=== PATIENT | female | born 1970 | race Caucasian/White ===

== ENCOUNTER 2023-09-27 13:56 | Emergency (ER) | payer BC, SELFPAY ==
[2023-09-27 14:00] VITALS: BP 201/121
[2023-09-27 16:28] VITALS: BP 165/92
[2023-09-27 16:32] VITALS: BMI 60.2
[2023-09-27] MEDS: NSS 1000 IV (16:33)
[2023-09-27 16:42] LABS: % Basophils 0.2 % (0-2); % Eosinophils 1.3 % (0-6); % Immature Granulocytes 0.6 % (0-0.5); % Lymphocytes 14.5 % (20.5-51.1); % Neutrophils 77.4 % (42.2-75.2); Absolute Eosinophils 0.1 10^3/uL (0-0.7); Absolute Immature Granulocytes 0.1 10^3/uL (0-0.05); Absolute Lymphocytes 1.3 10^3/uL (1.2-3.4); Absolute Monocytes 0.5 10^3/uL (0.1-0.6); Absolute Neutrophils 6.8 10^3/uL (1.4-6.5); Hematocrit 34.2 % (37.0-47.0); Hemoglobin 11.7 g/dL (12.0-16.0); Mean Corp Hgb Conc. 34.2 g/dL (33.0-37.0); Mean Corpuscular Hgb 30.9 pg (27.0-31.0); Mean Corpuscular Volume 90.2 fL (81.0-99.0); Mean Platelet Volume 9.5 fL (7.4-10.4); Nucleated Red Blood Cells % 0 %; Platelet Count 276 10^3/uL (130-400); Red Blood Cell Count 3.79 10^6/uL (4.20-5.40); White Blood Cell Count 8.7 10^3/uL (4.8-10.8)
--- NOTE | 2023-09-27 16:48 | ED.GENMED ---
History of Present Illness
<Esther Millan PRIMARY MONTESSORI TEACHER - Last Filed: 09/28/23 16:06>
General
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
Source: patient
Exam Limitations: none
Time Seen by Provider: 09/27/23 16:02
Nursing documentation reviewed up to this point in time: agreed with
History of Present Illness
History of Present Illness:
52-year-old female here for 7 days of heavy vaginal bleeding with clots some of them as large as her fist today, perimenopausal, has had episodic heavy vaginal bleeding with clots since 2021, followed by [facility], was given TXA in
2022 for her bleeding and she had some leftover. She has been taking leftover TXA 3 x a day for past 5 days with no improvement. She feels lightheaded, denies CP or SOB. There is no pain/cramping with the bleeding. No fever/chills. No n/v/d/c
Past History
<Esther Millan, PRIMARY MONTESSORI TEACHER - Last Filed: 09/28/23 16:06>
Past History
ED Past Medical History: Other (anemia, last Iron infusion one month ago)
ED Past Surgical History: Cholecystectomy and Other (gastric bypass)
Social History
Tobacco: Non-smoker
Personal:
Living: with family
Employment: Employed
Review of Systems
<Esther Millan PRIMARY MONTESSORI TEACHER - Last Filed: 09/28/23 16:06>
Review of Systems
Allergies reviewed?: Yes
All Other Systems: ROS reviewed and negative except as documented in HPI and ROS
Constitutional: Reports fatigue (lightheaded); Denies fever
Respiratory: Denies trouble breathing
Cardiac: Denies chest pain
ABD/GI: Denies abdominal pain, nausea, vomiting or diarrhea
: Reports bleeding (heavy vaginal bleeding with clots); Denies dysuria, frequency or difficulty voiding
Musculoskeletal: Reports no symptoms
Skin: Reports no symptoms
Neurological: Reports no symptoms
Phy Exam
<Esther Millan, PRIMARY MONTESSORI TEACHER - Last Filed: 09/28/23 16:06>
Physical Exam
Physical Exam:
GENERAL: No acute distress. A&Ox3.
CONSTITUTIONAL: Afebrile.
EYES:clear, conjunctivae normal
ENMT: moist mucus membranes, Pharynx nl
RESPIRATORY: Regular respirations, nonlabored, lungs clear.
CARDIOVASCULAR: Regular rate and rhythm, no murmurs, no rubs.
GI: Soft, nontender, normal BS
:
MUSCULOSKELETAL: Moves with ease. Well perfused.
SKIN: Warm, dry, pink
PSYCH: Normal mood and affect. Well kept, interactive and appropriate
NEUROLOGIC: Awake, alert and oriented. No focal neurological deficits
Course
<Esther Millan, PRIMARY MONTESSORI TEACHER - Last Filed: 09/28/23 16:06>
Orders/Labs/Results
Orders:
Orders
09/27/23 16:25
0.9% Sodium Chloride 1000 ml [Nss] 1,000 ml IV BOLUS
US Pelvis W Transvag Combined Urgent
Comment:
Reason For Exam: heavy bleeding w clots
09/27/23 16:30
Type+Screen Urgent
Complete Blood Count/With Diff Urgent
Comprehensive Metabolic Panel Urgent
HCG, Serum Qualitative Screen Urgent
Comment: ADD ON
09/27/23 17:15
Add On- LAB Urgent
Tests Added?: beta qual
09/27/23 20:08
Medroxyprogesterone [Provera] 5 mg PO NOW STA
Abnormal Lab Results
09/27/23
16:30
RBC 3.79 L 10^6/uL
(4.20-5.40)
Hgb 11.7 L g/dL
(12.0-16.0)
Hct 34.2 L %
(37.0-47.0)
Abs Immat Gran (auto) 0.1 H 10^3/uL
(0-0.05)
Absolute Neuts (auto) 6.8 H 10^3/uL
(1.4-6.5)
Immature Gran % 0.6 H %
(0-0.5)
Neutrophils % 77.4 H %
(42.2-75.2)
Lymphocytes % 14.5 L %
(20.5-51.1)
Creatinine 0.5 L mg/dL
(0.6-1.0)
Glucose 102 H mg/dl
(70-99)
09/27/23 16:30
09/27/23 16:30
Vital Signs
Initial and Last Documented VS:
Initial Vital Signs
Temp Pulse Resp BP Pulse Ox
98.6 F 74 16 201/121 97
09/27/23 14:00 09/27/23 14:00 09/27/23 14:00 09/27/23 14:00 09/27/23 14:00
Last Documented Vital Signs
Temp Pulse Resp BP Pulse Ox
98.6 F 69 16 140/72 66
09/27/23 14:00 09/27/23 16:28 09/27/23 14:00 09/27/23 20:27 09/27/23 20:27
<ELIZABETH Mendoza - Last Filed: 09/27/23 20:08>
Orders/Labs/Results
Orders:
Orders
09/27/23 16:25
0.9% Sodium Chloride 1000 ml [Nss] 1,000 ml IV BOLUS
US Pelvis W Transvag Combined Urgent
Comment:
Reason For Exam: heavy bleeding w clots
09/27/23 16:30
Type+Screen Urgent
Complete Blood Count/With Diff Urgent
Comprehensive Metabolic Panel Urgent
HCG, Serum Qualitative Screen Urgent
Comment: ADD ON
09/27/23 17:15
Add On- LAB Urgent
Tests Added?: beta qual
09/27/23 20:08
Medroxyprogesterone [Provera] 5 mg PO NOW STA
Abnormal Lab Results
09/27/23
16:30
RBC 3.79 L 10^6/uL
(4.20-5.40)
Hgb 11.7 L g/dL
(12.0-16.0)
Hct 34.2 L %
(37.0-47.0)
Abs Immat Gran (auto) 0.1 H 10^3/uL
(0-0.05)
Absolute Neuts (auto) 6.8 H 10^3/uL
(1.4-6.5)
Immature Gran % 0.6 H %
(0-0.5)
Neutrophils % 77.4 H %
(42.2-75.2)
Lymphocytes % 14.5 L %
(20.5-51.1)
Creatinine 0.5 L mg/dL
(0.6-1.0)
Glucose 102 H mg/dl
(70-99)
09/27/23 16:30
09/27/23 16:30
Vital Signs
Initial and Last Documented VS:
Initial Vital Signs
Temp Pulse Resp BP Pulse Ox
98.6 F 74 16 201/121 97
09/27/23 14:00 09/27/23 14:00 09/27/23 14:00 09/27/23 14:00 09/27/23 14:00
Last Documented Vital Signs
Temp Pulse Resp BP Pulse Ox
98.6 F 69 16 140/72 66
09/27/23 14:00 09/27/23 16:28 09/27/23 14:00 09/27/23 20:27 09/27/23 20:27
<Esther Millan NP - Last Filed: 09/28/23 16:06>
MDM/Problems Addressed
Differential Diagnosis Includes:
DUB
MDM/Problems Addressed:
52-year-old female here for 7 days of heavy vaginal bleeding with clots some of them as large as her fist today, perimenopausal, has had episodic heavy vaginal bleeding with clots since 2021, followed by [facility], was given TXA in
2022 for her bleeding and she had some leftover. She has been taking leftover TXA 3 x a day for past 5 days with no improvement. She feels lightheaded, denies CP or SOB. There is no pain/cramping with the bleeding. No fever/chills. No n/v/d/c
VSS, NAD, Afebrile
5:00 PM:
HGb 11.7
CMP normal
HCG neg
Ultrasound pending
Report given to Caroline Falk NP who will assume care from this point.
<ELIZABETH Mendoza - Last Filed: 09/27/23 20:08>
MDM/Problems Addressed
MDM/Problems Addressed:
52-year-old female here for 7 days of heavy vaginal bleeding with clots some of them as large as her fist today, perimenopausal, has had episodic heavy vaginal bleeding with clots since 2021, followed by [facility], was given TXA in
2022 for her bleeding and she had some leftover. She has been taking leftover TXA 3 x a day for past 5 days with no improvement. She feels lightheaded, denies CP or SOB. There is no pain/cramping with the bleeding. No fever/chills. No n/v/d/c
VSS, NAD, Afebrile
5:00 PM:
HGb 11.7
CMP normal
HCG neg
Ultrasound pending
Report given to Caroline Falk NP who will assume care from this point.
Message sent to Dr. Valle with US results and Hgb drop. Await her response.
Spoke with Dr. Valle and will start patient on Provara 5mg here and she is going to send in Prescription for her. Patient to follow up in their office for further evaluation.
<ELIZABETH Mendoza - Last Filed: 09/27/23 20:08>
*Radiology
Radiology exam reviewed: radiology read reviewed (US-Severe endometrial thickening. Diagnostic possibilities are (1) Benign endometrial hyperplasia or (2) Endometrial carcinoma. 4.5 cm calcified uterine leiomyoma. )
*Critical Care Note
Total Time (30-74mins, 75-104mins- exclusive of procedures): Not Applicable
ED Attending Note
<Esther Millan NP - Last Filed: 09/28/23 16:06>
-
Portions of this chart may have been created with voice recognition software.� Occasional wrong word or��sound alike� substitutions may have occurred due to the inherent limitations of voice recognition software.
Discharge Plan
Departure
Patient Disposition: Home (Routine Discharge)
Date of Disposition: 09/27/23
Time of Disposition: 20:04
Patient with high blood pressure during this ER visit?: Yes
Condition: Good
Covid-19: Not Applicable
Discharge Problem:
Abnormal vaginal bleeding
Instructions: Heavy Periods (DC), BLOOD PRESSURE
Prescriptions:
No Action
omeprazole 40 mg Capsule,Delayed Release(Dr/Ec)
40 mg PO BID
zonisamide 50 mg Capsule
50 mg PO DAILY
Referrals:
Kristin Gonzales NP [Family Provider] -
Activity Restrictions/Additional Instructions:
As discussed, your US shows that you have thickening of the Endometrial lining. Please follow up with the [facility] office for further evaluation. There has been a prescription called in for you by Dr. Valle and you have been given your first dose
here. IF YOU HAVE ANY OTHER CONCERNS PLEASE RETURN TO THE EMERGNCY ROOM. +
Interventions
Interventions:
*Risk Screen - Suicide Last Done: 09/27/23 16:31
*General Assessment Last Done: 09/27/23 16:31
*Neglect/Abuse Screening Last Done: 09/27/23 16:31
ED- Fall Risk Assessment Last Done: 09/27/23 20:37
*ED COVID-19 Vaccine History Last Done: 09/27/23 16:31
*Nursing Disposition Last Done: 09/27/23 20:37
ED-Female Genitourinary Assessment Last Done: 09/27/23 17:26
Discharge Date and Time
Discharge Date/Time: 09/27/23 20:38
Print Language: NEPALI
[2023-09-27 17:07] LABS: ALT (SGPT) 17 U/L (0-35); AST (SGOT) 24 U/L (14-36); Albumin 3.7 g/dl (3.5-5.0); Alkaline Phosphatase 78 U/L (38-126); Blood Urea Nitrogen 12 mg/dl (7-17); Calcium 8.5 mg/dl (8.4-10.2); Carbon Dioxide 26 mmol/L (22-30); Chloride 106 mmol/L (98-107); Estimated Creatinine Clearance > 125 ml/min; Glucose 102 mg/dl (70-99); Potassium 4.1 mmol/L (3.5-5.1); Sodium 136 mmol/L (135-145); Total Bilirubin 0.3 mg/dl (0.2-1.3); Total Protein 6.3 g/dl (6.3-8.2); eGFR > 60.00
[2023-09-27 17:27] LABS: HCG, Serum Qualitative Screen Negative
[2023-09-27 19:03] VITALS: BP 136/77
[2023-09-27] MEDS: PROVERA 5 MG PO (20:21)
[2023-09-27 20:27] VITALS: BP 140/72
== END 2023-09-27 20:38 | disposition home or self-care (01) ==
LOC: EMR 13:56
PROVIDERS: Registered Nurse; EMERGENCY PHYSICIAN Emergency Medicine; FAMILY PHYSICIAN Nurse Practitioner Adult Health
DX: N93.9 Abnormal uterine and vaginal bleeding, unspecified (principal); R03.0 Elevated blood-pressure reading, without diagnosis of hypertension
CPT/HCPCS: 99284; 96360; 76830; 76856; 80053; 84703; 85025; 86850; 86900; 86901

== ENCOUNTER → 2023-10-09 06:24 | Day surgery (SDC) | payer BC, SELFPAY ==
[2023-10-05 13:57] VITALS: BMI 57.6
[2023-10-05 14:07] LABS: % Basophils 0.5 % (0-2); % Eosinophils 2.2 % (0-6); % Immature Granulocytes 0.4 % (0-0.5); % Lymphocytes 17.8 % (20.5-51.1); % Monocytes 8.7 % (1.7-9.3); % Neutrophils 70.4 % (42.2-75.2); Absolute Eosinophils 0.2 10^3/uL (0-0.7); Absolute Lymphocytes 1.4 10^3/uL (1.2-3.4); Absolute Monocytes 0.7 10^3/uL (0.1-0.6); Absolute Neutrophils 5.7 10^3/uL (1.4-6.5); Hematocrit 32.8 % (37.0-47.0); Hemoglobin 11.2 g/dL (12.0-16.0); Mean Corp Hgb Conc. 34.1 g/dL (33.0-37.0); Mean Corpuscular Hgb 31.6 pg (27.0-31.0); Mean Corpuscular Volume 92.7 fL (81.0-99.0); Mean Platelet Volume 9.7 fL (7.4-10.4); Nucleated Red Blood Cells % 0 %; Platelet Count 328 10^3/uL (130-400); Red Blood Cell Count 3.54 10^6/uL (4.20-5.40); Red Cell Dist. Width 13.1 % (11.5-14.5); White Blood Cell Count 8.1 10^3/uL (4.8-10.8)
[2023-10-09] VITALS (10 sets, daily range): BP systolic 125–162; BP diastolic 65–86; BMI 57.6
[2023-10-09] MEDS: NORMOSOL-R 1000 IV (07:50)
[2023-10-09] MEDS: DILAUDID 0.25 MG IV (09:44)
== END ==
LOC: SDS 06:24
PROVIDERS: ATTENDING PHYSICIAN Obstetrics & Gynecology; FAMILY PHYSICIAN Nurse Practitioner Adult Health
DX: N93.9 Abnormal uterine and vaginal bleeding, unspecified (principal)
CPT/HCPCS: 58558; 88305; 36415; 85025

== ENCOUNTER 2023-10-12 01:57 | Emergency (ER) | payer BC, SELFPAY ==
[2023-10-12 01:57] VITALS: BMI 57.0
[2023-10-12 01:59] VITALS: BP 160/104
--- NOTE | 2023-10-12 03:34 | ED.GENMED ---
History of Present Illness
<ERYN Andrews (Lenka) - Last Filed: 10/12/23 05:52>
General
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
Source: patient and spouse
Exam Limitations: none
Time Seen by Provider: 10/12/23 03:32
Nursing documentation reviewed up to this point in time: agreed with
History of Present Illness
History of Present Illness:
Pt is a 52yo female with PMHx of dysmenorrhea and thickened endometrial stripe, anemia, B12 deficiencywho presents to the ED with pelvic pain and bleeding x 48 hrs. 3d ago, Thursday (10/08) pt had a D&C procedure for a thickened endometrial stripe found
on TVUS. She states that on 09/18/2023 she began having heavy vaginal bleeding, which prompted the TVUS. Since her discharge post-D&C she has continued to have heavy vaginal bleeding, minimal clots, but filling a 'heavy overnight pad' every 1-2 hours
since. She began to feel dizzy and lightheaded yesterday afternoon (10/10) when standing and ambulating, stable at rest. Admits to severe pelvic pain which she has been trying to manage with tylenol and advil, last advil dose at 1800 last night.
Additionally admits to new onset shortness of breath. Denies chest pain, abdominal pain, syncope, tinnitus, visual changes.
No hx of abnormal pap smears.
Pt not post-menopausal.
Last regular menstrual period 06/2023 or 07/2023.
Past History
<ERYN Andrews (Lenka) - Last Filed: 10/12/23 05:52>
Past History
ED Past Medical History: Other (anemia, last Iron infusion one month ago)
ED Past Surgical History: Cholecystectomy, Gynecological (D&C 10/2023) and Other (gastric bypass)
Social History
Tobacco: Non-smoker
Personal:
Living: with family
Employment: Employed
Phy Exam
<ERYN Andrews (Lenka) - Last Filed: 10/12/23 05:52>
General Physical Exam
General Presentation: moderate distress
General age: appears stated age
General Skin: warm and dry
General Habitus: obese
General Mental: alert
General Hydration: appears well hydrated (capillary refill < 2 seconds, normal skin turgor)
Cardiovascular Exam
Cardiovascular Exam: regular rate/rhythm, no edema, no gallop, no murmur and normal peripheral pulses
Pulmonary Exam
Pulmonary Exam: lungs clear, no respiratory distress, no rales, no rhonchi, no wheezing and no cough
Gastrointestinal Exam
Gastrointestinal Exam: normal bowel sounds and non distended
Genitourinary Exam Female
Exam Female: vaginal bleeding and other (tenderness to palpation over pelvis)
Neurological Exam
Neurological Exam: alert and speech normal
Course
<ERYN Andrews (Lenka) - Last Filed: 10/12/23 05:52>
Orders/Labs/Results
Orders:
Orders
10/12/23 02:18
US Pelvis Only (non-obstetric) Urgent
Comment:
Reason For Exam: heavy bleeding after D&C
10/12/23 03:59
0.9% Sodium Chloride 1000 ml [Nss] 1,000 ml IV BOLUS
10/12/23 04:01
CBC/With Diff [Complete Blood Count/With Diff] Urgent
10/12/23 04:38
Morphine Sulfate 4 mg .ROUTE .STK-MED ONE
10/12/23 04:42
Morphine Sulfate 4 mg IV NOW STA
10/12/23 05:00
Urinalysis Reflex To Culture Urgent
Date Specimen was Collected: 10/12/23
Time Specimen was Collected: 04:47
Urine Microscopic Reflex Cult Urgent
10/12/23 05:47
Tranexamic Acid 1000 mg/100 ml [Tranexamic Acid] 1,000 mg in 100 ml IV ONCE
10/12/23 05:49
US Pelvis Transvaginal Only Urgent
Comment:
Reason For Exam: Bleeding
10/12/23 07:15
Medroxyprogesterone [Provera] 30 mg PO NOW STA
Abnormal Lab Results
10/12/23 10/12/23
04:01 05:00
RBC 3.39 L 10^6/uL
(4.20-5.40)
Hgb 10.4 L g/dL
(12.0-16.0)
Hct 30.7 L %
(37.0-47.0)
Absolute Monos (auto) 0.7 H 10^3/uL
(0.1-0.6)
Lymphocytes % 17.3 L %
(20.5-51.1)
Ur Occult Blood Reflex 4+ A
(Negative)
Leukocyte Esterase Rfl Trace A
(Negative)
Urine RBC >100 A /HPF
(0-2)
Urine Albumin (Reflex) 2+ A
(Neg - Trace)
10/12/23 04:01
Vital Signs
Initial and Last Documented VS:
Initial Vital Signs
Temp Pulse Resp BP Pulse Ox
97.8 F 78 28 160/104 100
10/12/23 01:59 10/12/23 01:59 10/12/23 01:59 10/12/23 01:59 10/12/23 01:59
Last Documented Vital Signs
Temp Pulse Resp BP Pulse Ox
98.1 F 72 18 158/72 98
10/12/23 06:03 10/12/23 06:03 10/12/23 06:03 10/12/23 06:03 10/12/23 06:03
Ranilt;Paramjit Sewell, - Last Filed: 10/12/23 07:29>
Orders/Labs/Results
Orders:
Orders
10/12/23 02:18
US Pelvis Only (non-obstetric) Urgent
Comment:
Reason For Exam: heavy bleeding after D&C
10/12/23 03:59
0.9% Sodium Chloride 1000 ml [Nss] 1,000 ml IV BOLUS
10/12/23 04:01
CBC/With Diff [Complete Blood Count/With Diff] Urgent
10/12/23 04:38
Morphine Sulfate 4 mg .ROUTE .STK-MED ONE
10/12/23 04:42
Morphine Sulfate 4 mg IV NOW STA
10/12/23 05:00
Urinalysis Reflex To Culture Urgent
Date Specimen was Collected: 10/12/23
Time Specimen was Collected: 04:47
Urine Microscopic Reflex Cult Urgent
10/12/23 05:47
Tranexamic Acid 1000 mg/100 ml [Tranexamic Acid] 1,000 mg in 100 ml IV ONCE
10/12/23 05:49
US Pelvis Transvaginal Only Urgent
Comment:
Reason For Exam: Bleeding
10/12/23 07:15
Medroxyprogesterone [Provera] 30 mg PO NOW STA
Abnormal Lab Results
10/12/23 10/12/23
04:01 05:00
RBC 3.39 L 10^6/uL
(4.20-5.40)
Hgb 10.4 L g/dL
(12.0-16.0)
Hct 30.7 L %
(37.0-47.0)
Absolute Monos (auto) 0.7 H 10^3/uL
(0.1-0.6)
Lymphocytes % 17.3 L %
(20.5-51.1)
Ur Occult Blood Reflex 4+ A
(Negative)
Leukocyte Esterase Rfl Trace A
(Negative)
Urine RBC >100 A /HPF
(0-2)
Urine Albumin (Reflex) 2+ A
(Neg - Trace)
10/12/23 04:01
Vital Signs
Initial and Last Documented VS:
Initial Vital Signs
Temp Pulse Resp BP Pulse Ox
97.8 F 78 28 160/104 100
10/12/23 01:59 10/12/23 01:59 10/12/23 01:59 10/12/23 01:59 10/12/23 01:59
Last Documented Vital Signs
Temp Pulse Resp BP Pulse Ox
98.1 F 72 18 158/72 98
10/12/23 06:03 10/12/23 06:03 10/12/23 06:03 10/12/23 06:03 10/12/23 06:03
<ERYN Andrews (Lenka) - Last Filed: 10/12/23 05:52>
MDM/Problems Addressed
Differential Diagnosis Includes:
DDx: surgical complication post-D&C, menometrorrhagia, anemia
Pt with heavy vaginal bleeding, lightheadedness and dizziness, and severe pelvic pain. Cannot r/o surgical complication, will obtain transabdominal US and TVUS, as well as assess CBC for anemia concerns.
Labs notable for:
Hemoglobin 10.4 (baseline 11.2-11.7)
<ERYN Andrews (Lenka) - Last Filed: 10/12/23 05:52>
*Critical Care Note
Total Time (30-74mins, 75-104mins- exclusive of procedures): Not Applicable
<Paramjit Sewell DO - Last Filed: 10/12/23 07:29>
Update Note
Update Note:
US pelvis, transabdominal only
Comparison: 09/27/2023
IMPRESSION:
-Anteverted uterus. Redemonstrated calcified subserosal myoma in the posterior uterine body.
-The endometrial bilayer thickness measures up to 19 mm (, similar to 20 mm previously). There is no discrete endometrial mass on mccabe scale or abnormal vascularity noted on color Doppler.
-Neither ovary is visualized transabdominally. No adnexal mass, however.
-No significant free fluid in the pelvic cul-de-sac.
ED Attending Note
<ERYN Andrews (Lenka) - Last Filed: 10/12/23 05:52>
-
Portions of this chart may have been created with voice recognition software.� Occasional wrong word or��sound alike� substitutions may have occurred due to the inherent limitations of voice recognition software.
<Paramjit Sewell DO - Last Filed: 10/12/23 07:29>
ED Attending Note
Patient seen and examined by attending physician: Yes
I performed the substantive portion of visit, reviewed & personally made and approve the management plan that is documented in note by myself or RHEA.: Yes
ED Attending Note:
Pleasant 52-year-old female presents with dysfunctional uterine bleeding. She had a D&C by Dr. Nasrin Chavarria on Thursday. She was discharged home without complication. She had the expected cramping and vaginal spotting in the first 24 hours. For the
next 48 hours she states that she had heavy bleeding., On average going through one half pad per hour. Patient states that she still has cramping but it is similar to the cramping experienced immediately after the procedure. She started to feel
lightheaded and dizzy. She called the OB office and she was told to come to the emergency department should she develop lightheadedness or dizziness. Patient reports no chest pain or shortness of breath. Patient was seen in conjunction with the
PA student. I have reviewed and agree with the history and treatment plan presented. On my independent physical exam, patient is awake, alert, and oriented x3, minimal acute distress. Heart is regular rate and rhythm. Lungs are clear to
auscultation bilaterally without wheezes rales or rhonchi present. Abdomen is obese but nontender to palpation.
I spoke with Berny Restrepo, [employer] on-call. She recommended started tranexamic acid. She requests a transvaginal ultrasound. She is in the midst of an emergency . Patient is hemodynamically stable at this point. Patient will be seen
by Dr. Restrepo.
Discharge Plan
Departure
Patient Disposition: Other
Date of Disposition: 10/12/23
Time of Disposition: 05:54
Admit to doctor: Miller Restrepo
Discharge Problem:
Dysfunctional uterine bleeding, History of D&C
Instructions: Heavy Periods (DC)
Prescriptions:
No Action
omeprazole 40 mg Capsule,Delayed Release(Dr/Ec)
40 mg PO BID
medroxyprogesterone 5 mg Tablet
5 mg PO BID
B12
1 dose IM MONTHLY
misoprostol 100 mcg Tablet
100 mcg vaginal ONCE
Referrals:
Kristin Gonzales NP [Family Provider] -
Nasrin Chavarria MD [Active] - Keep scheduled appt
Activity Restrictions/Additional Instructions:
Please take the Provera as directed.
Take a daily vitamin with iron.
No vaginal penetration until cleared by Dr Chavarria.
Please follow up with Dr Chavarria at your previously scheduled appointment.
Interventions
Interventions:
*Risk Screen - Suicide Last Done: 10/12/23 01:59
*General Assessment Last Done: 10/12/23 05:09
*Neglect/Abuse Screening Last Done: 10/12/23 01:59
ED- Fall Risk Assessment Last Done: 10/12/23 05:09
*ED COVID-19 Vaccine History Last Done: 10/12/23 07:08
ED-Female Genitourinary Assessment Last Done: 10/12/23 03:21
Discharge Date and Time
Print Language: WELSH
[2023-10-12] MEDS: NSS 1000 IV (04:00)
[2023-10-12 04:12] LABS: % Basophils 0.4 % (0-2); % Eosinophils 1.7 % (0-6); % Immature Granulocytes 0.5 % (0-0.5); % Lymphocytes 17.3 % (20.5-51.1); % Monocytes 8.3 % (1.7-9.3); % Neutrophils 71.8 % (42.2-75.2); Absolute Eosinophils 0.1 10^3/uL (0-0.7); Absolute Lymphocytes 1.4 10^3/uL (1.2-3.4); Absolute Monocytes 0.7 10^3/uL (0.1-0.6); Absolute Neutrophils 5.8 10^3/uL (1.4-6.5); Hematocrit 30.7 % (37.0-47.0); Hemoglobin 10.4 g/dL (12.0-16.0); Mean Corp Hgb Conc. 33.9 g/dL (33.0-37.0); Mean Corpuscular Hgb 30.7 pg (27.0-31.0); Mean Corpuscular Volume 90.6 fL (81.0-99.0); Mean Platelet Volume 9.9 fL (7.4-10.4); Nucleated Red Blood Cells % 0 %; Platelet Count 306 10^3/uL (130-400); Red Blood Cell Count 3.39 10^6/uL (4.20-5.40); Red Cell Dist. Width 13.3 % (11.5-14.5); White Blood Cell Count 8.1 10^3/uL (4.8-10.8)
[2023-10-12] MEDS: MORPHINE SULFATE 4 MG IV (04:54)
[2023-10-12 05:02] VITALS: BP 143/77
[2023-10-12 05:20] LABS: Urine Albumin 2+ (Neg - Trace); Urine Bilirubin Negative (Negative); Urine Character Bloody (Clear); Urine Color Red; Urine Glucose Negative (Negative); Urine Ketone Negative (Negative); Urine Leukocyte Trace (Negative); Urine Nitrite Negative (Negative); Urine Occult Blood 4+ (Negative); Urine Urobilinogen Negative (Neg - 1+)
[2023-10-12 05:28] LABS: Urine Red Blood Cell >100 /HPF (0-2)
[2023-10-12] MEDS: TRANEXAMIC ACID 100 IV (06:00)
[2023-10-12 06:03] VITALS: BP 158/72
[2023-10-12] MEDS: PROVERA 30 MG PO (07:41)
--- NOTE | 2023-10-12 08:14 | CON.MD ---
Consultation - Medical
-
52 y/o G0 presents to ED with abnormal uterine bleeding. Pt S/P D&C 10/09/23 for same issue, felt well on Sat, but Sat into yesterday began to have increased bleeding and cramps. Denies fever, or problems with bowel or bladder habits. Was changing her
pad in less than an hour, so came to ED to be checked.
In ED, pt is afebrile, w/o orthostatic symptoms. WBC is normal, Hgb 10.4 (had been 11.2 pre-op), and U/S shows 16+ cm uterus with at least one 4.2 cm fibroid. Endometrial echo is 19-20 mm, confirmed with TV U/S.
Since being in ED, has been given TXA 1000mg, pt reports bleeding improved.
I saw patient first time 90 minutes ago, had to interrupt the encounter to go to Labor and Delivery. Exam was performed during first encounter. Upon my return patient reports that bleeding is much better, cramps are mild.
Have contacted histology to expedite path report from D&C
Meds: Provera 10 mg daily, Omeprazole 40 mg bid daily
Allergy: minocin,procaine
PMH:depression, elevated BMI
PSH: D&C, cholecystectomy, gastric bypass
FH:noncontributory
AH:denies tobacco,EtOH, drugs
ROS: does not add
PE: VSS Afeb
Abd-obese, soft, nontender, nondistended, good bowel sounds
Pelvic: vulva-clear
vagina-small amount of dark blood in post fornix
cervix-no active bleeding noted, no cervical motion tenderness
uterus-16 week size, nontender
adnexa-nonpalpable
Assessment: Abnormal uterine bleeding, improved with TXA, awaiting path on D&C specimen
Plan: Lengthy discussion with patient and partner about needing path report to guide next steps, but given lack of change in U/S from pre-op to now, am concerned about hyperplasia. Pt to continue with ELLA 10 mg daily for 10 days, then stop, to
resume on day 5 of bleeding. Patient advised to make appointment with Dr Chavarria for next week for setting up next steps (was hoping to be able to use LNG-IUC). Patient to continue with daily viamin with iron and additional iron every other day. Pelvic
rest to continue. Patient to follow up with office to make appointment and as needed. Patient will be called when path report available.
Face to face time as well as time spent in evaluating patient, reviewing test results and coordinating care required an 75 minutes.
== END 2023-10-12 09:41 | disposition home or self-care (01) ==
LOC: EMR 01:57
PROVIDERS: EMERGENCY PHYSICIAN Student in an Organized Health Care Education/Training Program; FAMILY PHYSICIAN Nurse Practitioner Adult Health; OTHER PHYSICIAN Obstetrics & Gynecology
DX: N93.8 Other specified abnormal uterine and vaginal bleeding (principal); R42 Dizziness and giddiness; R10.2 Pelvic and perineal pain; R06.02 Shortness of breath; N85.4 Malposition of uterus; D64.9 Anemia, unspecified; F32.A Depression, unspecified; E66.9 Obesity, unspecified; Z68.43 Body mass index [BMI] 50.0-59.9, adult; Z98.890 Other specified postprocedural states; Z86.16 Personal history of COVID-19; Z87.442 Personal history of urinary calculi; Z90.49 Acquired absence of other specified parts of digestive tract; Z98.84 Bariatric surgery status; Z88.8 Allergy status to other drugs, medicaments and biological substances
CPT/HCPCS: 99284; 96374; 96375; 96361; 76830; 76856; 81003; 81015; 85025

== ENCOUNTER 2024-01-26 07:05 | Day surgery (SDC) | payer BC, SELFPAY ==
[2024-01-19 08:00] LABS: % Basophils 0.8 % (0-2); % Eosinophils 3.7 % (0-6); % Immature Granulocytes 0.3 % (0-0.5); % Monocytes 6.5 % (1.7-9.3); % Neutrophils 67.7 % (42.2-75.2); Absolute Basophils 0.1 10^3/uL (0-0.2); Absolute Eosinophils 0.2 10^3/uL (0-0.7); Absolute Lymphocytes 1.3 10^3/uL (1.2-3.4); Absolute Monocytes 0.4 10^3/uL (0.1-0.6); Absolute Neutrophils 4.1 10^3/uL (1.4-6.5); Hematocrit 34.7 % (37.0-47.0); Hemoglobin 9.7 g/dL (12.0-16.0); Mean Corpuscular Volume 85.7 fL (81.0-99.0); Mean Platelet Volume 9.7 fL (7.4-10.4); Nucleated Red Blood Cells % 0 %; Platelet Count 323 10^3/uL (130-400); Red Blood Cell Count 4.05 10^6/uL (4.20-5.40); Red Cell Dist. Width 25.5 % (11.5-14.5)
[2024-01-19 08:25] LABS: Blood Urea Nitrogen 10 mg/dl (7-17); Calcium 8.4 mg/dl (8.4-10.2); Carbon Dioxide 20 mmol/L (22-30); Chloride 109 mmol/L (98-107); Glucose 87 mg/dl (70-99); Potassium 4.7 mmol/L (3.5-5.1); Sodium 141 mmol/L (135-145); eGFR > 60.00
[2024-01-19 08:31] LABS: Beta HCG Quantitative < 2.39 mIU/ml
[2024-01-19 08:35] LABS: Anisocytosis 1+; Hypochromasia 2+; Normal RBC Morphology No; Polychromasia 1+
[2024-01-19 12:19] VITALS: BMI 57.9
[2024-01-26] VITALS (12 sets, daily range): BP systolic 138–157; BP diastolic 67–98; BMI 57.9
[2024-01-26] MEDS: TYLENOL 1000 MG PO (12:06)
[2024-01-26] MEDS: NEURONTIN 300 MG PO (12:07)
--- NOTE | 2024-01-26 13:14 | W.SUR.PREOP ---
Pre-Operative Surgical Note
-
I have examined this patient prior to the performance of the scheduled procedure.
The patient's condition is unchanged from the time of the current History and
Physical and the patient is able to undergo the scheduled procedure.
Danielle informs me she would like both of her ovaries removed today. Aware this will place her into menopause
[2024-01-26 14:28] LABS: Hematocrit 35.3 % (37.0-47.0); Hemoglobin 10.7 g/dL (12.0-16.0); Mean Corp Hgb Conc. 30.3 g/dL (33.0-37.0); Mean Corpuscular Volume 85.9 fL (81.0-99.0); Mean Platelet Volume 9.6 fL (7.4-10.4); Platelet Count 296 10^3/uL (130-400); Red Blood Cell Count 4.11 10^6/uL (4.20-5.40); Red Cell Dist. Width 26.4 % (11.5-14.5); White Blood Cell Count 5.4 10^3/uL (4.8-10.8)
--- NOTE | 2024-01-26 17:08 | OR.RPT ---
Operative Report
Operative Report
Date of procedure: January 26, 2024
Preoperative diagnosis: Enlarged uterine leiomyoma 20 weeks size, perimenopausal bleeding, morbid obesity
Postoperative diagnosis: Same
Procedure: Robotic assisted total laparoscopic hysterectomy, uterus greater than 250 g, bilateral salpingo-oophorectomy,laparotomy for extraction of specimen. Robotic assisted adhesiolysis/enterolysis
Surgeon: Hiram Sifuentes MD
Anesthesia: General
Procedure in detail: I was contacted by Dr. Hilliard to help with this procedure. Patient had already been under general anesthesia after appropriate placement of IVs and positioning uterine manipulator had been placed. The patient has had a prior
Marcelina-en-Y procedure, I went ahead and placed the Veress needle just to the left subcostal margin and insufflated the abdomen with CO2 gas up to pressure of 15 mmHg. We placed a 8 mm X Xi robotic port in the left upper quadrant and visualized the
adhesions of the omentum to the anterior abdominal wall along the midline where she had a prior incision. We reexamined left lower quadrant, 2 additional ports were placed here, we were able to look in the right abdomen and 2 additional ports were
placed over there. Sharp dissection was performed to take the omentum off anterior abdominal wall. Once this was completed we turned our attention to the uterus, robotic system was docked with the patient placed a 28 degree Trendelenburg.
Initially Dr. Hilliard performed and ligation of ovarian vessels, ligation of round ligaments and began to work on developing bladder flap. This was difficult because of the size of the uterus. I went ahead and replaced the uterine manipulator and
then sat on the console and was able to approach to vesicouterine space from the right side and take the bladder down below the level of the cervix. I used the vessel sealer to ligate uterine arteries followed by paracervical tissue followed by
uterosacral ligaments. Then circumferential incision was made around the DU ring until the uterus was completely detached. We left the uterus intact in the abdomen the uterine manipulator was removed the vaginal cuff was closed by Dr. Hilliard. I
examined all the pedicles and there was no evidence of any bleeding in the pelvis. Next the robotic system was undocked. A 10 cm incision was made over the umbilicus at the site of prior laparotomy. The uterus and cervix and bilateral tubes and
ovaries were removed. Next the fascia was closed with a running suture of 0 looped PDS starting from both ends coming to the center and they were tied to each other. Subcutaneous tissue was closed with a running suture of 2-0 Monocryl. Skin was
closed with 4-0 Monocryl in a subcuticular closure. Counts of laps instruments and needle was correct x 2. I was present and scrubbed for entire procedure as dictated above.
--- NOTE | 2024-01-26 17:31 | W.IMMPOSTOP ---
Surgical Immed Post Op Note
-
Primary Surgeon: Monica Hilliard DO
Co-surgeon: Dr. Hiram Sifuentes (compensation consulting manager onc)
Chief Executive Officer: KARINA Goncalves
Pre-op Diagnosis: Fibroid uterus, menorrhagia class 3 obesity
Post-op Diagnosis: same
Procedure Performed: RA [facility] BSO with laparotomy for extraction of specimen
Anesthesia Type: general ET Dr. Boykin
Specimen / Cultures: uterus, cervix, bilateral tubes and ovaries
Estimated Blood Loss: 20ml
Reddy clear yellow 50ml
Complications: none
Operative Findings: Enlarged fibroid uterus approximately 17cm x 10 cm in size. Normal appearing tubes and ovaries bilaterally.
Counts correct x 2.
[2024-01-26] MEDS: ZOFRAN 4 MG IV (17:34)
[2024-01-26] MEDS: DILAUDID 0.5 MG IV ×3 (17:40→18:46)
[2024-01-26] MEDS: TORADOL 15 MG IV ×2 (18:13→23:27)
--- NOTE | 2024-01-26 19:15 | PTCARENOTE ---
Pt arrive to [facility] from PACU at 1915 in a bed. Full head to toe and assessment questions completed. Pt has 5 lap sites and a midline incision. The surgical sites are [employer] and approximated. Pt oriented to call becerril and room. Bed locked and in lowest
position. Care ongoing.
[2024-01-26] MEDS: COLACE 100 MG PO (20:12)
[2024-01-26] MEDS: LOVENOX 40 MG SC (20:12)
[2024-01-26] MEDS: PROTONIX 40 MG PO (20:12)
[2024-01-26] MEDS: NSS 1000 IV (20:15)
[2024-01-26] MEDS: ROXICODONE 2.5 MG PO (23:32)
[2024-01-26 23:44] LABS: Hematocrit 40.5 % (37.0-47.0); Hemoglobin 12.5 g/dL (12.0-16.0)
[2024-01-27 00:01] LABS: Blood Urea Nitrogen 10 mg/dl (7-17); Carbon Dioxide 19 mmol/L (22-30); Chloride 109 mmol/L (98-107); Estimated Creatinine Clearance > 125 ml/min; Glucose 155 mg/dl (70-99); Potassium 4.8 mmol/L (3.5-5.1); Sodium 139 mmol/L (135-145); eGFR > 60.00
[2024-01-27 02:55] VITALS: BP 109/51
--- NOTE | 2024-01-27 04:09 | VATNOTE ---
CALLED TO ASSESS LACK OF BLD RETURN FROM [facility] PICC. PICC DRSG C/D/I. BOTH LUMENS FLUSH WELL. EXTENSIONS REMOVED AND CAPS CHANGED ON BOTH LUMENS. UNABLE TO OBTAIN A BR FROM EITHER LUMEN. PT STATES PICC INDICATION THERAPY IS COMPLETED. PT SCHEDULED
FOR D/C IN AM. WILL NOT CATHFLO PICC AT THIS TIME. PT REQUESTING PICC BE REMOVED PRIOR TO D/C IN AM. PCN AWARE OF PLANOF CARE AND INTERVENTION OUTCOME. VAT TO FOLLOW.
--- NOTE | 2024-01-27 05:28 | DOWNTIME ---
There was a [employer] Control Operators Supervisor Downtime on 01/27/2024 from 0100 to 01/27/2024 at 0350. Downtime documentation of patient's care, including medication administrations, has been reconciled in the electronic record per guidelines. Refer to the
patient's paper chart under the miscellaneous tab to see printed paper medication records and downtime forms.
[2024-01-27] MEDS: NSS IV (05:30)
[2024-01-27] MEDS: TORADOL 15 MG IV (05:39)
--- NOTE | 2024-01-27 07:14 | W.PN.OBG.DWH ---
Today's Communication / Plan
-
Advance diet
needs to void
OOB/ambulation
Picc line may be pulled but not until am labs are back and hgb stable please
D/c later today
Assessment/Plan
-
POD#1 s/p RA TLH BSO lysis of adhesions
-awaiting am labs
-awaiting void
regular diet for breakfast
-Anticipate dc later this am/pm
-Reviewed operative findings, d/c instructions
PICC line was placed for her outpt iron infusions. 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
Will place order for removal (once am labs back)
Subjective Data
-
POD#1 Feeling well. Tolerating some crackers. Breakfast has not come.
No N/V/d
No active vaginal bleeding
Reddy out -has not voided yet
Feels able to go home today
Objective Data
-
Vital Signs
Temp Pulse Resp BP Pulse Ox
97.7 F 65 16 109/51 100
01/27/24 02:55 01/27/24 02:55 01/27/24 02:55 01/27/24 02:55 01/27/24 02:55
VSS afeb
cor regular
Abd: soft +bs NDNT inc cdi
Ext: no calf orozco
no active vaginal bleeding
AM labs pending
--- NOTE | 2024-01-27 07:21 | W.DS.TRANS ---
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
-
Discharge Instructions:
Sleep Apnea Risk Intermediate
Discharge Diagnosis/Procedures S/P RA TLH BSO lysis of adhesions, laparotomy
for extraction specimen
Diet Regular
Activity No strenuous activity
Driving Restrictions No driving for 2 weeks
Bathing Restrictions OK to Shower
Wound Care you may shower. Dry incisions well. Incisions
closed with glue. Call if incisions become red,
swollen, or have pus-like drainage.
Instructions:
Stand-Alone Forms:
Changes to Home Medications: No
Discharge Medications:
DC Medications w/original date entered in [facility]
omeprazole 40 mg capsule,delayed release 40 mg PO BID 09/18/22
promethazine 6.25 mg/5 mL oral syrup 6.25 mg PO PRN PRN recent bronchitis 01/19/24
acetaminophen 325 mg tablet 650 mg (2 x 325 mg) PO Q4HPRN PRN mild pain #0 tabs 01/26/24
oxycodone 5 mg tablet 2.5 mg (1/2 x 5 mg) PO Q4HPRN PRN moderate pain #0 tabs 01/26/24
oxycodone 5 mg tablet 5 mg PO Q6HPRN PRN severe pain when tolerating PO #15 tabs 01/26/24
Home Medication Changes
Pending Results: Yes
Additional Pending Results:
surgical path
Total time spent discharging patient (in min): 35
[2024-01-27] MEDS: COLACE 100 MG PO (07:39)
[2024-01-27] MEDS: PROTONIX 40 MG PO (07:39)
[2024-01-27 08:35] LABS: % Basophils 0.2 % (0-2); % Eosinophils 0.1 % (0-6); % Immature Granulocytes 0.5 % (0-0.5); % Lymphocytes 8.1 % (20.5-51.1); % Monocytes 6.1 % (1.7-9.3); Absolute Immature Granulocytes 0.1 10^3/uL (0-0.05); Absolute Lymphocytes 0.8 10^3/uL (1.2-3.4); Absolute Monocytes 0.6 10^3/uL (0.1-0.6); Absolute Neutrophils 8.2 10^3/uL (1.4-6.5); Hematocrit 42.1 % (37.0-47.0); Hemoglobin 12.2 g/dL (12.0-16.0); Mean Corpuscular Hgb 25.8 pg (27.0-31.0); Mean Corpuscular Volume 89.2 fL (81.0-99.0); Mean Platelet Volume 9.6 fL (7.4-10.4); Nucleated Red Blood Cells % 0 %; Platelet Count 373 10^3/uL (130-400); Red Blood Cell Count 4.72 10^6/uL (4.20-5.40); Red Cell Dist. Width 26.5 % (11.5-14.5); White Blood Cell Count 9.7 10^3/uL (4.8-10.8)
[2024-01-27 08:40] VITALS: BP 128/71
--- NOTE | 2024-01-27 10:38 | CM ---
Alert awake oriented patient who lives with her SO Wilber in a 2 story home with 1 steps to enter and bed/bathroom on first floor. She is independent in activates of daily living.She had PICC line dc this am.She said Wilber will drive her home.Offered
VN she declined need.
Had VN in past . No SNF hx
Pharmacy [facility]
PCP Dr Gonzales
PLAN Home with no needs
[2024-01-27 11:11] LABS: Blood Urea Nitrogen 10 mg/dl (7-17); Carbon Dioxide 18 mmol/L (22-30); Chloride 106 mmol/L (98-107); Estimated Creatinine Clearance > 125 ml/min; Potassium 4.5 mmol/L (3.5-5.1); Sodium 140 mmol/L (135-145)
[2024-01-27 11:45] VITALS: BP 144/63
[2024-01-27] MEDS: ROXICODONE 5 MG PO (12:40)
[2024-01-27] MEDS: TORADOL IV (12:41)
[2024-01-27 14:29] LABS: Urine Albumin Trace (Neg - Trace); Urine Bilirubin Negative (Negative); Urine Character Clear (Clear); Urine Color Yellow; Urine Glucose Negative (Negative); Urine Ketone Negative (Negative); Urine Leukocyte Trace (Negative); Urine Nitrite Negative (Negative); Urine Occult Blood 3+ (Negative); Urine Urobilinogen Negative (Neg - 1+)
[2024-01-27 14:43] LABS: Urine Mucus Moderate; Urine Squamous Cell >30 /LPF (Few)
[2024-01-27 14:44] LABS: Urine Red Blood Cell 16-20 /HPF (0-2)
[2024-01-27 14:46] LABS: Urine Bacteria Few (Negative)
== END 2024-01-27 14:37 | disposition home or self-care (01) ==
LOC: SDS 07:05
PROVIDERS: ATTENDING PHYSICIAN Obstetrics & Gynecology; FAMILY PHYSICIAN Nurse Practitioner Adult Health; REFERRING PHYSICIAN Internal Medicine
DX: D25.9 Leiomyoma of uterus, unspecified (principal); N80.03 Adenomyosis of the uterus; N83.8 Other noninflammatory disorders of ovary, fallopian tube and broad ligament; K66.0 Peritoneal adhesions (postprocedural) (postinfection); N92.0 Excessive and frequent menstruation with regular cycle; N93.9 Abnormal uterine and vaginal bleeding, unspecified; E66.01 Morbid (severe) obesity due to excess calories; Z68.43 Body mass index [BMI] 50.0-59.9, adult; E66.813 Obesity, class 3; Z98.84 Bariatric surgery status
CPT/HCPCS: 58572; 58661; 88307; 88311; 36415; 71045; 80048; 80051; 81003; 81015; 82565; 84520; 84702; 85014; 85018; 85025; 85027; 86850; 86900; 86901; 93005